=== PATIENT | male | born 2000 | race Two or more races ===

== ENCOUNTER → 2021-08-12 | Emergency (ER) | payer MEDICAID ==
[~2021-08-12] VITALS: Ht 182.9 cm; Wt 122.5 kg
[~2021-08-12] MED LIST: KETOROLAC TROMETH 60MG/2ML VIAL IM ONE
[2021-08-12 04:48] VITALS: BP 134/76
== END | disposition home or self-care (01) ==
LOC: ER 03:17 → EDBD 03:17
DX: S93.401A Sprain of unspecified ligament of right ankle, initial encounter (principal); X58.XXXA Exposure to other specified factors, initial encounter; Y93.89 Activity, other specified; Y92.89 Other specified places as the place of occurrence of the external cause; Y99.8 Other external cause status
CPT/HCPCS: 73610; 96372; 99283; J1885